=== PATIENT | male | born 1960 | race Caucasian/White ===

== ENCOUNTER → 2017-12-31 16:20 | Outpatient (CLI) | payer MEDICARE, SELFPAY ==
--- NOTE | 2017-12-31 16:27 | MRI_ITS ---
STUDY: MRI LEFT SHOULDER REASON FOR EXAM: Male, 57 years old. Left-sided shoulder mass. TECHNIQUE: Standardized fat and water weighted pulse sequences were obtained in all 3 orthogonal planes. COMPARISON: None. FINDINGS: There is supraspinatus tendinosis with tendon attrition, but without a demonstrated supraspinatus tendon tear. There is infraspinatus tendinosis with tendon attrition, but without a demonstrated infraspinatus tendon tear. There is subscapularis tendinosis with tendon thickening, but without a demonstrated tendon tear. Normal teres minor tendon. There is mild atrophy of the supraspinatus muscle. Normal infraspinatus muscle. Normal subscapularis muscle. Normal teres minor muscle. There is mild osteoarthritis of the glenohumeral articulation. There is a cortical erosion at the insertion of the infraspinatus tendon. Normal biceps labral complex. Normal intracapsular long biceps tendon. Normal labrum. Normal capsulo- ligamentous complex. Normal rotator interval. There is moderate osteoarthritis of the acromioclavicular articulations. There appear to be a cystic lesion near the acromioclavicular joint that may represent ganglion or synovial cysts. There is a Type II morphology (curved). There is minimal fluid distention of the subacromial bursa, consistent with mild subacromial-subdeltoid bursitis. Normal axillary space. Normal deltoid muscle. Normal trapezius muscle. Two vitamin E markers indicate the site of palpable abnormality. This appears to correspond to increased thickening of the subcutaneous lipomatous soft tissues suggesting probable lipoma. This does not have a capsule and is difficult to discern an isolated lipoma. MRI/Upper Ext Joint Only(Routine) IMPRESSION: 1. The palpable abnormality appears to correspond to increased lipomatous soft tissue probably representing a lipoma. 2. 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 3. Tendinopathy of the rotator cuff tendon. Electronically Signed: Leigh Goel MD at 11:55 EDT , Service support ,
== END ==
PROVIDERS: Family Provider Family Medicine; PCP Family Medicine; Visit Provider Family Medicine
DX: R22.32 Localized swelling, mass and lump, left upper limb (principal)
CPT/HCPCS: 73221